=== PATIENT | female | born 1955 | race African-American/Black ===

== ENCOUNTER 2016-09-01 10:30 | Outpatient (CLI) | payer OTHER ==
[2015-11-16 16:09] VITALS: BMI 29.0
[2016-09-01 12:49] LABS: BASOPHILS # (AUTO) 0.1 K/uL (0-0.2); BASOPHILS % (AUTO) 0.9 % (0.0-3.0); EOSINOPHILS # (AUTO) 0.2 K/ul (0.0-0.7); HEMATOCRIT 44.1 % (37.0-47.0); HEMOGLOBIN 14.8 g/dl (12.0-16.0); IMMATURE GRANULOCYTE % (AUTO) 0.4 % (0.0-5.0); LYMPHOCYTES % (AUTO) 29.9 (10.0-50.0); MEAN CORPUSCULAR HEMOGLOBIN 30.8 pg (27.0-31.0); MEAN CORPUSCULAR HGB CONC 33.6 (31.8-35.4); MEAN CORPUSCULAR VOLUME 91.9 fl (81.0-99.0); MONOCYTES % (AUTO) 9.7 (0-10); NEUTROPHILS # (AUTO) 5.8 K/ul (2.0-6.9); NEUTROPHILS % (AUTO) 57.1; PLATELET COUNT 269 10^3/uL (140-440); WHITE BLOOD COUNT 10.18 K/ul (4.6-10.2)
[2016-09-01 14:24] LABS: ALBUMIN 4.1 g/dL (3.4-5.0); ALBUMIN/GLOBULIN RATIO 0.95; ANION GAP 13.6; BILIRUBIN,TOTAL 0.71 mg/dL (0.00-1.20); BUN/CREATININE RATIO 21.51; CREATININE 0.79 mg/dL (0.60-1.30); POTASSIUM 3.6 mmol/L (3.5-5.10); TOTAL PROTEIN 8.4 g/dL (5.8-8.1)
== END 2016-09-01 10:31 | disposition home or self-care (01) ==
LOC: LAB 10:30
PROVIDERS: ATTEND Nurse Practitioner Family
DX: E78.5 Hyperlipidemia, unspecified (principal); I10 Essential (primary) hypertension; Z72.0 Tobacco use
CPT/HCPCS: 36415; 80053; 80061; 84443; 85025

== ENCOUNTER 2016-09-05 08:22 | Emergency (ER) ==
--- NOTE | 2016-09-05 08:24 | ED.PDOC ---
General ED Provider: Dr. MARIAH RAMIREZ JR Chief Complaint: Abdominal Pain Stated Complaint: since yesterday vomiting and diarrhea; pain End] after fried chicken, ham and greens, pain in right upper quadrant, vomiting and diarrhea.[ End ]98.8 78 16 97% 130/86 12/27. . : 11/16/15 stung her above her left eyebrow. Sting from hornet, wasp, or bee. . : 04/02/15 : Mariah Tadeo: dysphagia; dilated 48 [place] guidewire dilator.[Grade a reflux esophagitis, esophageal dilatation rule out eosinophilic esophagitis gastritis]small bowel disease omeprazole 20 mg every morning await histology.]. . : 09/17/14: arm pain numbness right hand: Similar episode (shakes her hand to get relife): Current every day smoker: Carpal tunnel syndrome Time Seen by Physician: 08:39 Mode of Arrival: Walk-In Information Source: Patient Exam Limitations: No limitations Nursing and Triage Documentation Reviewed and Agree: No Review of Systems - Review Of Systems Constitutional: Reports: Malaise Eyes: Reports: No symptoms Ears, Nose, Mouth, Throat: Reports: No symptoms Respiratory: Reports: No symptoms Cardiac: Reports: No symptoms GI: Reports: Abdominal pain, Diarrhea, Nausea, Vomiting (since 1400 09/05) : Reports: No symptoms Musculoskeletal: Reports: No symptoms, Other (rib margin tenderness nonfocal ) Skin: Reports: No symptoms Neurological: Reports: No symptoms Endocrine: Reports: No symptoms Hematologic/Lymphatic: Reports: No symptoms All Other Systems: Other Past Medical History - Past Medical History Previously Healthy: Yes Endocrine: Reports: DM 2 Cardiovascular: Reports: Hypertension Respiratory: Reports: None Hematological: Reports: None Gastrointestinal: Reports: GERD (endoscopy(DILATION)), Liver (HEP C ) Genitourinary: Reports: None Neuro/Psych: Reports: TIA (MINI-STROKE), Anxiety, Depression Musculoskeletal: Reports: Arthritis Cancer: Reports: None - Surgical History General Surgical History: Reports: Hysterectomy, Other ( RUPTURED OVARY), Unknown - Family History Family History: Reports: Unknown - Social History Smoking Status: Current every day smoker Hx Substance Use: No Alcohol Screening: None Physical Exam - Physical Exam Appearance: Ill-appearing, Obese Ill-appearing: Mild Pain Distress: Moderate Eyes: ANGIE, EOMI, Conjunctiva clear ENT: Ears normal, Nose normal, Oropharynx normal Neck: Supple Respiratory: Airway patent, Breath sounds clear, Breath sounds equal, Respirations nonlabored Cardiovascular: RRR, Pulses normal, No rub, No murmur GI/: Soft, Tender Musculoskeletal: Normal strength, ROM intact, No edema, No calf tenderness Skin: Warm, Dry, Normal color Neurological: Sensation intact (RUQ with diffuse tenderness), Motor intact, Reflexes intact, Cranial nerves intact, Alert, Oriented Psychiatric: Affect appropriate, Mood appropriate Interpretation - Radiology Interpretation Radiology Interpretation By: Radiologist Radiology Results: Negative Exam Interpreted: Other (gall bladder ultrasound) Re-Evaluation - Re-Evaluation Time of Re-Evaluation: 09:49 (still with stomach pain states has not started antibiotic for breast cellulitis not examined-recommend start antibiotic, notes had twz cupas of green liquor(from cookoing turnip greens)usually a good purgative- possibly causative) Status: Improved Critical Care Note - Critical Care Note Total Time (mins): 5 Course - Course Hematology/Chemistry: 09/05/16 08:45 09/05/16 08:45 Orders, Labs, Meds: Lab Review 09/05/16 08:45 WBC 12.27 H RBC 4.69 Hgb 14.5 Hct 42.1 MCV 89.8 MCH 30.9 MCHC 34.4 RDW Coeff of Zoë 13.8 Plt Count 213 Immature Gran % (Auto) 0.3 Neut % (Auto) 59.6 Lymph % (Auto) 27.1 Porter % (Auto) 9.9 Eos % (Auto) 2.4 Baso % (Auto) 0.7 Immature Gran # (Auto) 0.0 Neut # 7.3 H Lymph # 3.3 Porter # 1.2 Eos # 0.3 Baso # 0.1 Sodium 138 Potassium 3.7 Chloride 105 Carbon Dioxide 25 Anion Gap 11.7 BUN 13 Creatinine 0.70 Estimated GFR (MDRD) 103.00 BUN/Creatinine Ratio 18.57 Glucose 105 Calcium 9.8 Total Bilirubin 0.44 AST 18 ALT 16 Alkaline Phosphatase 52 L Total Protein 7.8 Albumin 3.8 Globulin 4.0 Albumin/Globulin Ratio 0.95 Amylase 76 Lipase 39 H. pylori IgG Antibody Negative Orders Category Date Time Status NPO REMINDER: IMAGING ONCE CARE 09/05/16 08:41 Completed ED IV/MEDIPORT/POWERPORT .ONCE EMERGENCY 09/05/16 08:39 Active ED IV/MEDIPORT/POWERPORT .ONCE EMERGENCY 09/05/16 08:44 Active AMYLASE Stat LAB 09/05/16 08:45 Completed CBC W/ AUTO DIFF Stat LAB 09/05/16 08:45 Completed COMPREHENSIVE METABOLIC PANEL Stat LAB 09/05/16 08:45 Completed H. PYLORI SCREEN Stat LAB 09/05/16 08:45 Completed LIPASE Stat LAB 09/05/16 08:45 Completed URINALYSIS C & S IF INDICATED Stat LAB 09/05/16 08:40 Uncollected 0.9 % Sodium Chloride [Saline Flush] MEDS 09/05/16 08:39 Active 1 syr IVF PRN PRN 0.9 % Sodium Chloride [Saline Flush] MEDS 09/05/16 08:44 Active 1 syr IVF PRN PRN Ceftriaxone Sodium [Rocephin] MEDS 09/05/16 09:53 Discontinued 1 gm .ROUTE .STK-MED ONE Ceftriaxone Sodium [Rocephin] 1 gm MEDS 09/05/16 09:48 Active 0.9 % Sodium Chloride [Sodium Chloride] 50 ml IV ONCE Mag-Al Plus//Lidocaine [Gi Cocktail] MEDS 09/05/16 09:24 Discontinued 30 ml PO ONCE STA Morphine Sulfate [Morphine 4 mg/ml Syringe] MEDS 09/05/16 08:44 Discontinued 4 mg IVP ONCE STA Ondansetron HCl/Pf [Zofran 4 mg/2 ml] MEDS 09/05/16 08:44 Discontinued 4 mg IVP ONCE STA Sodium Chloride 0.9% [Sodium Chloride] 1,000 ml MEDS 09/05/16 08:44 Discontinued IV BOLUS U/S ABDOMEN, RT. UPPER QUAD Stat RADS 09/05/16 08:40 Completed Medications Generic Name Dose Route Start Last Admin Trade Name Freq PRN Reason Stop Dose Admin Ceftriaxone Sodium 1 gm/ 50 mls @ 75 mls/hr 09/05/16 09:48 Sodium Chloride IV 09/05/16 10:27 ONCE STA Sodium Chloride 1 syr 09/05/16 08:39 09/05/16 09:17 Saline Flush IVF 1 syr PRN PRN Administration To flush IV Sodium Chloride 1 syr 09/05/16 08:44 Saline Flush IVF PRN PRN To flush IV Discontinued Medications Generic Name Dose Route Start Last Admin Trade Name Kecia PRN Reason Stop Dose Admin Al Hydroxide/Mg Hydroxide 30 ml 09/05/16 09:24 09/05/16 09:35 Gi Cocktail PO 09/05/16 09:25 30 ml ONCE STA Administration Sodium Chloride 1,000 mls @ 1,000 mls/hr 09/05/16 08:44 09/05/16 09:14 Sodium Chloride IV 09/05/16 09:43 1,000 mls/hr BOLUS STA Administration Morphine Sulfate 4 mg 09/05/16 08:44 09/05/16 09:15 Morphine 4 Mg/Ml Syringe IVP 09/05/16 08:45 4 mg ONCE STA Administration Ondansetron HCl 4 mg 09/05/16 08:44 09/05/16 09:14 Zofran 4 Mg/2 Ml IVP 09/05/16 08:45 4 mg ONCE STA Administration Vital Signs: Temp Pulse Resp BP Pulse Ox 09/05/16 08:25 98.8 F 78 16 130/86 97 Departure - Departure Time of Disposition: 09:29 Disposition: HOME SELF-CARE Discharge Problem: Gastroenteritis Instructions: Gastroenteritis (ED) Condition: Good Pt referred to PMD for follow-up: Yes Additional Instructions: your white blood count is slightly elevated you are not yet dehydrated but drink plenty of fluids your ultrasound is normal Pain is unusual- need to recheck in one week PMD return if fever over 101.0 if unable to keep clear liquids down Phenergan for nausea Zofran for nausea not controlled 6-8 eight ounce cups clear liquid daily clear liquid diet for 12 to 24 hours then regular diet may use Kaopectate or Peptobismol for diarrhea follow up PMD one week sooner if not resolved follow up for evaluation of esophagus as scheduled Prescriptions: Hydrocodone Bit/Acetaminophen [[place] 5-325] 1 - 2 tab PO Q6HR PRN #12 tablet PRN Reason: pain Ondansetron HCl [Zofran Tab] 4 mg PO QID PRN #12 tablet PRN Reason: Nausea / Vomiting Promethazine HCl [Phenergan Tab] 25 mg PO QID PRN #12 tablet PRN Reason: Nausea / Vomiting Allergies/Adverse Reactions: Allergies No Known Allergies Allergy (Verified 09/05/16 08:27) Home Medications: Ambulatory Orders Omeprazole [Prilosec] 20 mg PO QDAC 11/16/15 Gabapentin 300 mg PO TID 09/01/16 Hydrocodone Bit/Acetaminophen [[place] 5-325] 1 - 2 tab PO Q6HR PRN #12 tablet Ondansetron HCl [Zofran Tab] 4 mg PO QID PRN #12 tablet 09/05/16 Promethazine HCl [Phenergan Tab] 25 mg PO QID PRN #12 tablet 09/05/16 Disposition Discussed With: Patient
[2016-09-05 08:27] VITALS: BP 130/86; TEMP 98.8; BMI 27.3
[2016-09-05] MEDS ORDERED: SODIUM CHLORIDE 1,000 ML IV STA (08:44)
[2016-09-05] MEDS ORDERED: MORPHINE 4 MG/ML SYRINGE IVP STA (08:44)
[2016-09-05] MEDS ORDERED: ZOFRAN 4 MG/2 ML IVP STA (08:44)
[2016-09-05 08:51] LABS: BASOPHILS # (AUTO) 0.1 K/uL (0-0.2); BASOPHILS % (AUTO) 0.7 % (0.0-3.0); EOSINOPHILS # (AUTO) 0.3 K/ul (0.0-0.7); EOSINOPHILS % (AUTO) 2.4 % (0.0-7.0); HEMATOCRIT 42.1 % (37.0-47.0); HEMOGLOBIN 14.5 g/dl (12.0-16.0); IMMATURE GRANULOCYTE % (AUTO) 0.3 % (0.0-5.0); LYMPHOCYTES # (AUTO) 3.3 K/uL (0.60-3.4); LYMPHOCYTES % (AUTO) 27.1 (10.0-50.0); MEAN CORPUSCULAR HEMOGLOBIN 30.9 pg (27.0-31.0); MEAN CORPUSCULAR HGB CONC 34.4 (31.8-35.4); MEAN CORPUSCULAR VOLUME 89.8 fl (81.0-99.0); MONOCYTES # (AUTO) 1.2 K/uL (0.4-2.0); MONOCYTES % (AUTO) 9.9 (0-10); NEUTROPHILS # (AUTO) 7.3 K/ul (2.0-6.9); NEUTROPHILS % (AUTO) 59.6; PLATELET COUNT 213 10^3/uL (140-440); RED BLOOD COUNT 4.69 10^6/ul (4.20-5.40); WHITE BLOOD COUNT 12.27 K/ul (4.6-10.2)
[2016-09-05 09:06] LABS: H. PYLORI ANTIBODY NEGATIVE (NEGATIVE); H.PYLORI INTERNAL QC INTERNAL QC VALID
[2016-09-05 09:12] LABS: ALBUMIN 3.8 g/dL (3.4-5.0); ALBUMIN/GLOBULIN RATIO 0.95; ANION GAP 11.7; BILIRUBIN,TOTAL 0.44 mg/dL (0.00-1.20); BUN/CREATININE RATIO 18.57; CALCIUM 9.8 mg/dL (8.2-10.2); CREATININE 0.7 mg/dL (0.60-1.30); POTASSIUM 3.7 mmol/L (3.5-5.10); TOTAL PROTEIN 7.8 g/dL (5.8-8.1)
--- NOTE | 2016-09-05 09:20 | US ---
Exam: Kerr-scale and color Doppler ultrasonographic evaluation of the right upper quadrant. Comparison: None available. Reason for exam: Right upper quadrant pain, nausea, vomiting. FINDINGS: The liver measures approximately 13.84 cm with normal antegrade portal venous flow, and n o intrahepatic ductal dilatation. There is no perihepatic free fluid. The gallbladder wall measures 0.31 cm. No intraluminal stones, sludge, or polyps. The partially imaged pancreas is unremarkable. The imaged portion of the pancreatic duct measures 1. 35 mm. The right kidney measures approximately 9.96 x 4.74 x 4.79 cm without hydronephrosis or neph rolithiasis. Impression: Unremarkable ultrasonographic evaluation of the right upper quadrant.
[2016-09-05] MEDS ORDERED: GI COCKTAIL PO STA (09:24)
[2016-09-05] MEDS ORDERED: ROCEPHIN 1 GM in SODIUM CHLORIDE 50 ML IV STA (09:48)
[2016-09-05] MEDS ORDERED: ROCEPHIN ONE (09:53)
== END 2016-09-05 10:47 | disposition home or self-care (01) ==
LOC: ED 08:22
DX: K52.9 Noninfective gastroenteritis and colitis, unspecified (principal); D72.829 Elevated white blood cell count, unspecified; E11.9 Type 2 diabetes mellitus without complications; I10 Essential (primary) hypertension; K21.9 Gastro-esophageal reflux disease without esophagitis; Z79.899 Other long term (current) drug therapy; Z86.73 Personal history of transient ischemic attack (TIA), and cerebral infarction without residual deficits; F17.210 Nicotine dependence, cigarettes, uncomplicated
CPT/HCPCS: 36415; 80053; 82150; 83690; 85025; 86677; 96361; 96365; 96375; 99283

== ENCOUNTER 2016-09-09 09:12 | Outpatient (CLI) ==
--- NOTE | 2016-09-12 11:38 | MAMMO ---
PRELIMINARY EXAM: Digital bilateral diagnostic mammogram and right breast ultrasound HISTORY: Right breast infection just subjacent to the nipple. Patient has been taking antibiotics and reports the area is smaller. Patient also reports this has happened previously. COMPARISON: Mammogram 04/02/2012 and 08/03/2015 FINDINGS: Multiple views of the bilateral breast were performed digitally and demonstrate scattered fibroglandular breast density (25 - 50%). The left lateral parenchymal nodule from recent prior is unchanged. No new left breast nodule is identified. The right breast demonstrates a nodular densit y subjacent to the nipple measuring 1.8 x 2.1 cm approximately. This was not identified on prior ex amination. There is mild nodular parenchyma in the right breast. Ultrasound of the right breast demonstrates a hypoechoic complex lesion subjacent to the nipple kyler uring 1.7 x 0.9 x 1.4 cm. There is no internal color Doppler flow. IMPRESSION: Complex hypoechoic lesion subjacent to the nipple with no internal color Doppler flow m ay represent a complex cyst versus phlegmon. No definitive abscess is identified. RECOMMENDATION: Return to annual screening mammogram. If lesion increases in size or symptoms, follow-up right [address] st diagnostic mammogram is recommended BIRADS category II: Benign findings
== END 2016-09-09 09:13 | disposition home or self-care (01) ==
LOC: RAD 09:12
PROVIDERS: ATTEND Nurse Practitioner Family
DX: N61.0 Mastitis without abscess (principal); N64.4 Mastodynia

== ENCOUNTER 2016-12-16 11:01 | Emergency (ER) ==
[2016-12-16 11:08] VITALS: BP 149/88; TEMP 99.5; BMI 27.9
--- NOTE | 2016-12-16 11:30 | ED.PDOC ---
General ED Provider: Dr. ANDREA CAZARES Chief Complaint: Earache Stated Complaint: Right ear pain & sinus congestion x 2 days. White rhinorrhea. Also having tenderness and scant pustular drainage about right breast nipple. Pt relates a long history of getting sinus infections 1-2x/year always accompanied by a right breast abcess. Same symptoms as currently. Right breast was infected years ago and has scar tissue that is prone to infection. Time Seen by Physician: 11:30 Mode of Arrival: Walk-In Information Source: Patient Primary Care Provider: [facility] Nursing and Triage Documentation Reviewed and Agree: Yes EENT Complaint Exam - Ear Complaint/Exam Onset/Duration: 2 days Symptoms Are: Still present Timing: Constant Initial Severity: Mild Current Severity: Moderate Character: Reports: Dull pain, Aching pain Aggravating: Reports: None Alleviating: Reports: None Associated Signs and Symptoms: Reports: URI symptoms Related History: Reports: Similar Episode (1-2x/year gets sinus infection w/ same symptoms) Ear Surgical History: None Vesicles to Tragus: No TMJ Tenderness: None Mastoid Tenderness: None Tragal Tenderness: None Tympanic Membrane: Dullness (bilateral TMs are nix and retracted) - Nasal Complaint/Exam Onset/Duration: 2 days Symptoms Are: Still present Timing: Constant Initial Severity: Mild Current Severity: Moderate Location: Bilateral (also has right breast nipple soreness and scant pustular drainage from scar tissue, not nipple itself) Aggravating: Reports: None Alleviating: Reports: None Associated Signs and Symptoms: Reports: Nasal congestion. Denies: Sinus pain Related History: Reports: Similar episode (sinus infections 1-2x/year with same symptoms) Nasal Surgical History: Reports: None Foreign Body Present: No Septal Hematoma: No Differential Diagnoses: Sinusitis, Other (URI with early right breast cellulitis ) Review of Systems - Review Of Systems Constitutional: Reports: No symptoms Eyes: Reports: No symptoms Ears, Nose, Mouth, Throat: Reports: Ear pain (right ear pain only) Respiratory: Reports: No symptoms Cardiac: Reports: No symptoms GI: Reports: No symptoms : Reports: No symptoms Musculoskeletal: Reports: No symptoms Skin: Reports: Lumps (scar tissue about right breast nipple is tender and has scant pustular drainage) Neurological: Reports: No symptoms All Other Systems: Reviewed and Negative Past Medical History - Past Medical History Previously Healthy: Yes Endocrine: Reports: DM 2 Cardiovascular: Reports: Hypertension Respiratory: Reports: None Hematological: Reports: None Gastrointestinal: Reports: GERD, Liver Genitourinary: Reports: None Neuro/Psych: Reports: TIA (MINI-STROKE), Anxiety, Depression Musculoskeletal: Reports: Arthritis Cancer: Reports: None Last Menstrual Period: hysterectomy - Surgical History General Surgical History: Reports: Hysterectomy, Other ( RUPTURED OVARY), Unknown - Family History Family History: Reports: Unknown - Social History Smoking Status: Current every day smoker, Heavy tobacco smoker Hx Substance Use: No Alcohol Screening: None Lives: Alone - Immunizations Tetanus Shot up to Date: No Influenza Vaccine within 12 Months: No Pneumococcal Vaccine up to Date: No Physical Exam - Physical Exam Appearance: Well-appearing, Well-nourished Ill-appearing: None Pain Distress: Mild Eyes: ANGIE, EOMI, Conjunctiva clear ENT: Nose normal, Oropharynx normal, TMs Occluded (Both TMs retracted and nix) Neck: Supple Respiratory: Airway patent, Breath sounds clear, Breath sounds equal, Respirations nonlabored Cardiovascular: RRR, Pulses normal, No rub, No murmur GI/: Soft, Nontender, No masses, Bowel sounds normal, No Organomegaly Musculoskeletal: Normal strength, ROM intact, No edema, No calf tenderness Skin: Warm (tissue on lateral aspect of right breast nipple is raised, mildy erythematous, and with prssure drains a scant amount of pustular drainage. No fluctuance. No streaking.), Dry, Normal color Neurological: Sensation intact, Motor intact, Reflexes intact, Cranial nerves intact, Alert, Oriented Psychiatric: Affect appropriate, Mood appropriate Critical Care Note - Critical Care Note Total Time (mins): 0 Course - Course Vital Signs: Temp Pulse Resp BP Pulse Ox 12/16/16 11:02 99.5 F 72 20 149/88 H 95 Departure - Departure Time of Disposition: 11:57 Disposition: HOME SELF-CARE Discharge Problem: Upper respiratory infection, Infection of right breast, Soft tissue infection Instructions: Upper Respiratory Infection (ED) Condition: Good Pt referred to PMD for follow-up: No (if symptoms worsen or fail to resolve follow up with doctor) Allergies/Adverse Reactions: Allergies No Known Allergies Allergy (Verified 12/16/16 11:09) Home Medications: Ambulatory Orders Gabapentin 300 mg PO TID 06/15/17 Acetaminophen with Codeine [Tylenol #3 Tab] 1 tab PO Q4H PRN #20 tablet Amoxicillin/Potassium Clav [Augmentin 875-125 mg Tab] 1 tab PO Q12HR #30 tablet 12/16/16 Disposition Discussed With: Patient
== END 2016-12-16 12:05 | disposition home or self-care (01) ==
LOC: ED 11:01
DX: J06.9 Acute upper respiratory infection, unspecified (principal); N61.0 Mastitis without abscess; F17.210 Nicotine dependence, cigarettes, uncomplicated
CPT/HCPCS: 99282

== ENCOUNTER 2017-03-23 11:49 | Outpatient (CLI) ==
--- NOTE | 2017-03-23 12:06 | DI ---
EXAM: Radiographs, right elbow HISTORY: Right lobe pain. COMPARISON: None available. TECHNIQUE: Three views. FINDINGS: Bone mineralization is normal. There is no fracture or dislocation. The joint spaces are maintained although mild marginal osteophyte formation seen off the radial head and coronoid process of the ulna. Tiny olecranon spur noted. Elevation of the posterior fat pad noted. No focal soft t issue abnormality is seen. IMPRESSION: 1. No fracture or dislocation. 2. Mild osteoarthritis with elbow joint effusion. 3. Tiny olecranon spur.
== END 2017-03-23 11:50 | disposition home or self-care (01) ==
LOC: RAD 11:49
PROVIDERS: ATTEND Nurse Practitioner Family
DX: M25.521 Pain in right elbow (principal); E75.6 Lipid storage disorder, unspecified; B18.2 Chronic viral hepatitis C; K21.9 Gastro-esophageal reflux disease without esophagitis
CPT/HCPCS: 36415; 80053; 80061; 85025

== ENCOUNTER 2017-06-27 12:05 | Outpatient (CLI) | END 2017-06-27 12:06 | disposition home or self-care (01) | LOC: FCC-LAB 12:05 | PROVIDERS: ATTEND Nurse Practitioner Family | DX: E78.5 Hyperlipidemia, unspecified (principal); I10 Essential (primary) hypertension | CPT/HCPCS: 36415; 80053; 80061; 84439; 84443; 85025 ==

== ENCOUNTER 2018-04-10 15:23 | Outpatient (CLI) | END 2018-04-10 15:24 | disposition home or self-care (01) | LOC: RHC-LAB 15:23 → FCC-LAB 15:24 | PROVIDERS: ATTEND Family Medicine | DX: B18.8 Other chronic viral hepatitis (principal); R76.8 Other specified abnormal immunological findings in serum | CPT/HCPCS: 36415; 87522 ==

== ENCOUNTER 2018-04-30 12:29 | Outpatient (CLI) | payer OTHER | END 2018-04-30 12:30 | disposition home or self-care (01) | LOC: LAB 12:29 | PROVIDERS: ATTEND Family Medicine | DX: B18.2 Chronic viral hepatitis C (principal); Z87.898 Personal history of other specified conditions; Z11.3 Encounter for screening for infections with a predominantly sexual mode of transmission | CPT/HCPCS: 36415; 85610; 85730; 86592; 87389; 87800 ==

== ENCOUNTER 2018-05-04 08:30 | Outpatient (CLI) ==
--- NOTE | 2018-05-04 09:33 | US ---
EXAM: Right upper quadrant abdominal ultrasound. History: Chronic viral hepatitis C Comparison: Abdominal ultrasound 09/05/2016 Technique: Multiple sonographic images through the abdomen were obtained. Color duplex Doppler was used to interrogate vascular flow. Findings: The liver is not enlarged. Pancreas is within normal limits. No abdominal ascites. No s hadowing gallstones. Gallbladder wall is not thickened. Common bile duct measures 0.4 cm in caliber . There is antegrade flow within the main portal vein. Limited visualization of the right kidney de monstrates no evidence for hydronephrosis. The periportal echoes within the liver are maintained. 1 .2 cm well circumscribed hyperechoic liver lesion. Impression: 1. No acute sonographic findings. 2. Indeterminate hyperechoic liver lesion. Recommend further evaluation with MRI liver mass shay lala
== END 2018-05-04 08:31 | disposition home or self-care (01) ==
LOC: RAD 08:30
PROVIDERS: ATTEND Family Medicine
DX: B18.2 Chronic viral hepatitis C (principal); Z87.898 Personal history of other specified conditions

== ENCOUNTER 2018-05-07 10:24 | Outpatient (CLI) | payer OTHER | END 2018-05-07 10:25 | disposition home or self-care (01) | LOC: LAB 10:24 | PROVIDERS: ATTEND Nurse Practitioner Family | DX: R16.0 Hepatomegaly, not elsewhere classified (principal) | CPT/HCPCS: 36415; 82565 ==

== ENCOUNTER 2018-05-11 09:57 | Outpatient (CLI) | payer OTHER ==
--- NOTE | 2018-05-11 12:04 | MRI ---
EXAM: MRI of the abdomen with and without contrast. History: Liver lesions seen on recent ultrasound. Comparison: Abdominal ultrasound 05/04/2018 Technique: Multiplanar, multisequence MRI images through the abdomen were obtained with and without the administration of IV contrast. 14 mL of Omniscan was given intravenously. Findings: Lung bases are clear. Bone marrow signal is within normal limits. No renal masses. No d ilated loops of bowel. No free air and no ascites. The liver and spleen are not enlarged. No galls tones. No intrahepatic or extrahepatic biliary ductal dilatation. There is no signal drop out withi n the liver on opposed phase imaging. Pancreas is within normal limits. Pancreatic duct is not dila julio. Adrenal glands are within normal limits. No abdominal aortic aneurysm. Portal veins are patent. 1 cm enhancing lesion within the right hepatic lobe. 1.2 cm and 0.9 cm enh ancing lesions within the left hepatic lobe. All these lesions demonstrate contrast fill in on the m ore delayed images with no washout. No other liver lesions identified. No lymphadenopathy. Impression: 1. Three benign hepatic hemangiomas. No suspicious liver lesions. No additional follow-up is needmandi dAndreea
== END 2018-05-11 09:58 | disposition home or self-care (01) ==
LOC: RAD 09:57
PROVIDERS: ATTEND Family Medicine
DX: R16.0 Hepatomegaly, not elsewhere classified (principal)

== ENCOUNTER 2018-05-21 10:47 | Outpatient (CLI) | payer OTHER ==
--- NOTE | 2018-05-21 12:12 | US ---
EXAM: Digital bilateral diagnostic mammogram with 3-D tomosynthesis and right breast ultrasound HISTORY: Right retroareolar nodule COMPARISON: Multiple priors including ultrasound 01/03/2018, 05/09/2017 and numerous priors with diag nostic mammogram 04/02/2012 FINDINGS: Multiple bilateral views of the breast were performed digitally and demonstrate scattered fibroglandular breast density . The area of concern in the posterior to the nipple on the right side demonstrates a marker with a small nodule seen on 3-D tomosynthesis. There are benign calcification s present. There is a left upper outer breast mass which has been present for multiple years and is unchanged dating back to 2012. Right breast. Dedicated ultrasound demonstrates a retroareolar complex hypoechoic cystic lesion kyler uring 0.5 x 0.3 cm with no internal color Doppler flow. Just posterior to the nipple there is a ques tionable nodule measuring 0.6 x 0.3 centimeters and no internal color Doppler flow. Patient reports she does follow-up at the breast center in [place]. IMPRESSION: Persistent retroareolar cystic lesions in the right breast with questionable nodule vers us nodular parenchyma in the retroareolar space. RECOMMENDATION: 6-month follow-up ultrasound at the breast center in [place] BIRADS category 3: Probable benign finding
--- NOTE | 2018-05-22 15:32 | MAMMO ---
EXAM: Digital bilateral diagnostic mammogram with 3-D tomosynthesis and right breast ultrasound HISTORY: Right retroareolar nodule COMPARISON: Multiple priors including ultrasound 01/03/2018, 05/09/2017 and numerous priors with diag nostic mammogram 04/02/2012 FINDINGS: Multiple bilateral views of the breast were performed digitally and demonstrate scattered fibroglandular breast density . The area of concern in the posterior to the nipple on the right side demonstrates a marker with a small nodule seen on 3-D tomosynthesis. There are benign calcification s present. There is a left upper outer breast mass which has been present for multiple years and is unchanged dating back to 2012. Right breast. Dedicated ultrasound demonstrates a retroareolar complex hypoechoic cystic lesion kyler uring 0.5 x 0.3 cm with no internal color Doppler flow. Just posterior to the nipple there is a ques tionable nodule measuring 0.6 x 0.3 centimeters and no internal color Doppler flow. Patient reports she does follow-up at the breast center in [place]. IMPRESSION: Persistent retroareolar cystic lesions in the right breast with questionable nodule vers us nodular parenchyma in the retroareolar space. RECOMMENDATION: 6-month follow-up ultrasound at the breast center in [place] BIRADS category 3: Probable benign finding
== END 2018-05-21 10:48 | disposition home or self-care (01) ==
LOC: RAD 10:47
PROVIDERS: ATTEND Family Medicine
DX: N63.12 Unspecified lump in the right breast, upper inner quadrant (principal); I88.9 Nonspecific lymphadenitis, unspecified

== ENCOUNTER 2018-07-31 14:09 | Emergency (ER) ==
[2018-07-31] MEDS ORDERED: TORADOL IVP STA (14:18)
[2018-07-31] MEDS ORDERED: ZOFRAN 4 MG/2 ML IVP STA (14:18)
[2018-07-31] MEDS ORDERED: SODIUM CHLORIDE 1,000 ML IV STA (14:18)
[2018-07-31 14:21] VITALS: BP 108/72; TEMP 98.6; BMI 32.8
--- NOTE | 2018-07-31 14:42 | ED.PDOC ---
General ED Provider: Dr. BRAD PATEL Chief Complaint: Abdominal Pain Stated Complaint: Severe Rt Flank Pain. Sudden onset Pain radiating into Rt upper and lower abdomen. Pos Nausea and vomiting. Time Seen by Physician: 14:10 Mode of Arrival: Walk-In Information Source: Patient Exam Limitations: No limitations Primary Care Provider: ANDREA PATINO Nursing and Triage Documentation Reviewed and Agree: Yes Does patient meet sepsis criteria?: No If yes, has appropriate treatment been initiated?: No System Inflammatory Response Syndrome: Not Applicable Sepsis Protocol: For patient's 13 years and over: Temp is 96.8 and below OR 101 and greater Pulse >90 BPM Resp >20/minute Acutely Altered Mental Status Are patient's symptoms suggestive of a new infection, such as: -Pneumonia -Skin, Soft Tissue -Endocarditis -UTI -Bone, Joint Infection -Implantable Device -Acute Abdominal Infection -Wound Infection -Meningitis -Blood Stream Catheter Infection -Unknown Review of Systems - Review Of Systems Constitutional: Reports: No symptoms Eyes: Reports: No symptoms Ears, Nose, Mouth, Throat: Reports: No symptoms Respiratory: Reports: No symptoms Cardiac: Reports: No symptoms GI: Reports: Abdomen distended, Abdominal pain : Reports: No symptoms Skin: Reports: No symptoms Neurological: Reports: No symptoms Endocrine: Reports: No symptoms Hematologic/Lymphatic: Reports: No symptoms All Other Systems: Reviewed and Negative Past Medical History - Past Medical History Previously Healthy: Yes Endocrine: Reports: DM 2 Cardiovascular: Reports: Hypertension Respiratory: Reports: None Hematological: Reports: None Gastrointestinal: Reports: GERD, Liver Genitourinary: Reports: None Neuro/Psych: Reports: TIA (MINI-STROKE), Anxiety, Depression Musculoskeletal: Reports: Arthritis Cancer: Reports: None Last Menstrual Period: unk - Surgical History General Surgical History: Reports: Hysterectomy, Other ( RUPTURED OVARY), Unknown - Family History Family History: Reports: Unknown - Social History Smoking Status: Never smoker Hx Substance Use: No Alcohol Screening: None - Immunizations Tetanus Shot up to Date: No Influenza Vaccine within 12 Months: No Pneumococcal Vaccine up to Date: No Physical Exam - Physical Exam Appearance: Ill-appearing, Obese Ill-appearing: Moderate Pain Distress: Moderate Eyes: Conjunctiva pale ENT: Ears normal, Nose normal, Oropharynx normal Neck: Supple Respiratory: Airway patent, Breath sounds clear, Breath sounds equal, Respirations nonlabored Cardiovascular: RRR, Pulses normal, No rub, No murmur GI/: Soft, No masses, Bowel sounds normal, No Organomegaly, Tender (guarding with rt flank /cva tenderness), Bowel sounds hypoactive Musculoskeletal: Normal strength, ROM intact, No edema, No calf tenderness Skin: Warm, Dry, Normal color Neurological: Sensation intact, Motor intact, Reflexes intact, Cranial nerves intact, Alert, Oriented Psychiatric: Affect appropriate, Mood appropriate Interpretation - Radiology Interpretation Radiology Interpretation By: Radiologist Exam Interpreted: CT Scan Xray Comments: no acute abnormalities Critical Care Note - Critical Care Note Total Time (mins): 60 Course - Course Hematology/Chemistry: 07/31/18 14:14 07/31/18 14:14 Orders, Labs, Meds: Lab Review 07/31/18 07/31/18 07/31/18 14:14 14:14 14:35 WBC 11.59 H RBC 4.59 Hgb 13.5 Hct 41.5 MCV 90.4 MCH 29.4 MCHC 32.5 RDW Coeff of Zoë 14.5 Plt Count 306 Immature Gran % (Auto) 0.3 Neut % (Auto) 57.3 Lymph % (Auto) 31.7 [place] % (Auto) 6.6 Eos % (Auto) 3.3 Baso % (Auto) 0.8 Immature Gran # (Auto) 0.0 Neut # (Auto) 6.6 Lymph # (Auto) 3.7 H [place] # (Auto) 0.8 Eos # (Auto) 0.4 Baso # (Auto) 0.1 Sodium 140.6 Potassium 4.32 Chloride 102.1 Carbon Dioxide 29.4 Anion Gap 13.42 BUN 11.7 Creatinine 0.71 Estimated GFR (MDRD) 101.00 BUN/Creatinine Ratio 16.47 Glucose 138.8 H Calcium 10.07 Total Bilirubin 0.42 AST 30.9 ALT 23.4 Alkaline Phosphatase 59.7 Total Protein 8.51 H Albumin 4.76 Globulin 3.75 Albumin/Globulin Ratio 1.26 Urine Color Yellow Urine Clarity Clear Urine pH 5.5 Ur Specific [place] >=1.030 Urine Protein Negative Urine Glucose (UA) Negative Urine Ketones Negative Urine Blood Negative Urine Nitrite Negative Urine Bilirubin Negative Urine Urobilinogen 0.2 Ur Leukocyte Esterase Negative Orders Category Date Time Status CBC W/ AUTO DIFF Stat LAB 07/31/18 14:14 Completed CMP [COMPREHENSIVE METABOLIC PANEL] Stat LAB 07/31/18 14:14 Completed UA [URINALYSIS C & S IF INDICATED] Stat LAB 07/31/18 14:35 Completed Acetaminophen [Tylenol] MEDS 07/31/18 15:11 Discontinued 1,000 mg PO ONCE STA Ketorolac Tromethamine [Toradol] MEDS 07/31/18 14:18 Discontinued 30 mg IVP ONCE STA Ondansetron HCl/Pf [Zofran 4 mg/2 ml] MEDS 07/31/18 14:18 Discontinued 4 mg IVP ONCE STA Sodium Chloride 0.9% [Sodium Chloride] 1,000 ml MEDS 07/31/18 14:[address] ABD/PEL WO RENAL STONE PROT Stat RADS 07/31/18 14:38 Completed Medications Generic Name Dose Route Start Last Admin Trade Name Freq PRN Reason Stop Dose Admin Sodium Chloride 1,000 mls @ 500 mls/hr 07/31/18 14:18 07/31/18 14:32 Sodium Chloride IV 07/31/18 16:17 500 mls/hr BOLUS STA Administration Discontinued Medications Generic Name Dose Route Start Last Admin Trade Name Freq PRN Reason Stop Dose Admin Acetaminophen 1,000 mg 07/31/18 15:11 07/31/18 15:30 Tylenol PO 07/31/18 15:12 1,000 mg ONCE STA Administration Ketorolac Tromethamine 30 mg 07/31/18 14:18 07/31/18 14:34 Toradol IVP 07/31/18 14:19 30 mg ONCE STA Administration Ondansetron HCl 4 mg 07/31/18 14:18 07/31/18 14:33 Zofran 4 Mg/2 Ml IVP 07/31/18 14:19 4 mg ONCE STA Administration Vital Signs: Temp Pulse Resp BP Pulse Ox 07/31/18 14:10 98.6 F 90 22 108/72 97 Departure - Departure Time of Disposition: 15:50 Disposition: HOME SELF-CARE Discharge Problem: Abdominal pain in female, Fecal retention Instructions: Acute Abdominal Pain (ED), Constipation (ED) Condition: Good Pt referred to PMD for follow-up: Yes IPMP verified?: Yes Additional Instructions: Stay well hydrated Take bulk forming agent like citracel or metamucil [place] juice, prune juice and sprite in equal amounts for relief of constipation Allergies/Adverse Reactions: Allergies No Known Allergies Allergy (Verified 07/31/18 14:17) Home Medications: Ambulatory Orders Aspirin 81 mg PO ONCE 03/08/18 Disposition Discussed With: Patient
[2018-07-31] MEDS ORDERED: TYLENOL PO STA (15:11)
--- NOTE | 2018-07-31 15:34 | CT ---
EXAM: CT ABDOMEN AND PELVIS HISTORY: Right flank/abdominal pain TECHNIQUE: CT abdomen and pelvis without intravenous contrast. Images were reconstructed using 3 mm section thickness. Reformations were prepared. COMPARISON: None FINDINGS: Diagnostic limitations may exist without including contrast enhanced images. Liver and spleen appear normal. No gross gallbladder pathology. Pancreas and adrenal glands appear normal. There is no ne phrolithiasis, hydronephrosis or perinephric fat stranding. No convincing evidence of ureteral calcu piedad. Moderate atherosclerotic disease is present. Stomach is within normal limits. No appendix is seen. Slight excess fecal retention in the distal r ectosigmoid. Nonobstructive bowel gas pattern. Urinary bladder is unremarkable. No uterus is seen. There is no ascites or inflammatory infiltration of the abdominal fat. No ventral abdominal wall hernia. The bones reveal no acute finding. Lung bases are clear. No pneu moperitoneum. IMPRESSION: 1. No clear etiology for the patient's symptoms was found. 2. Atherosclerosis. 3. No appendix identified. 4. Slight excess fecal retention rectosigmoid.
== END 2018-07-31 16:10 | disposition home or self-care (01) ==
LOC: ED 14:09
DX: R10.9 Unspecified abdominal pain (principal); R14.0 Abdominal distension (gaseous); K59.00 Constipation, unspecified
CPT/HCPCS: 36415; 74176; 80053; 81001; 85025; 96361; 96374; 96375; 99283